=== PATIENT | female | born 1960 | race Caucasian/White ===

== ENCOUNTER 2021-04-14 19:41 | Emergency (ER) | payer BC ==
[2021-04-14 20:57] LABS: HEMATOCRIT 37.9 % (37.0-47.0); HEMOGLOBIN 12.8 g/dL (12.5-16.0); MEAN CELL VOLUME 87 fl (78-100); MEAN CORPUSCULAR HEMOGLOBIN 29 pg (27-31); MEAN CORPUSCULAR HGB CONC 34 g/dL (33-37); MEAN PLATELET VOLUME 11.7 fl (7.4-10.4); PLATELET COUNT 167 K/mm3 (130-400); RED BLOOD COUNT 4.35 M/mm3 (4.10-5.30); RED CELL DISTRIBUTION WIDTH 14.9 % (11.5-14.5); WHITE BLOOD COUNT 2.5 K/mm3 (4.8-10.8)
[2021-04-14] MEDS ORDERED: TOPIRAMATE25 MG PO (21:21)
[2021-04-14] MEDS ORDERED: REVLIMID5 M1 PO (21:21)
[2021-04-14] MEDS ORDERED: PAROXETINE HYDR10 MG PO (21:22)
[2021-04-14 21:23] LABS: BAND 17 % (0-10); NEUTROPHILS 36 % (42-75)
[2021-04-14] MEDS ORDERED: TYLENOL PM EX-1 EACH PO (21:23)
[2021-04-14] MEDS ORDERED: MEDI-FIRST ASP325 MG PO (21:23)
[2021-04-14 21:24] LABS: LYMPHOCYTE 31 % (20-51); MONOCYTE 16 % (3-10)
[2021-04-14] MEDS ORDERED: SPACE CHAMBER1 EACH MC (22:00)
[2021-04-14] MEDS ORDERED: GUAIFEN-CODEINE5 ML PO (22:00)
[2021-04-14] MEDS ORDERED: PREDNISONE20 M1 PO (22:00)
[2021-04-14] MEDS ORDERED: LEVOFLOXACIN500 M1 PO (22:00)
[2021-04-14] MEDS ORDERED: PROVENTIL0.09 MG/A1 IH (22:01)
[2021-04-14 22:15] VITALS: BP 100/87
== END 2021-04-14 22:15 | disposition home or self-care (01) ==
LOC: ED 19:41
PROVIDERS: Family Medicine
DX: D70.1 Agranulocytosis secondary to cancer chemotherapy (principal); Z94.81 Bone marrow transplant status; Z20.822 Contact with and (suspected) exposure to COVID-19